=== PATIENT | female | born 1960 | race Caucasian/White ===

== ENCOUNTER 2017-01-09 05:45 | Inpatient (IN) | payer BC, OTHER ==
--- OUTSIDE RECORDS SUMMARY | 2017-01-09 05:49 | XMS REPORT | Continuity of Care Document ---
:1960 Author Organization [facility] ([facility]) Address [address] [place] [address] Phone [phone] Care Team Providers Name Role Phone Provider, No-Primary Care Primary Care Provider Unavailable Source Comments This disclosure is being made pursuant to the Care Everywhere program, applicable federal and state laws, and may not contain all informaitonavailable regarding this patient.[facility] ([facility]) Active Allergies and Adverse Reactions Not on File Current Medications Not on file Active Problems Not on file Social History Tobacco Use Types Packs/Day Years Used Date Never Assessed Plan of Care Health Maintenance Due Date Last Done Comments HCV Screening 1960 Hepatitis B Vaccine (1 of 3 - Primary Series) 1960 Tdap Vaccine 1972 Lipid Disorder Screening 1979 MMR Vaccine 1979 Td Vaccine 1979 Cervical Cancer Screening 1991 Mammogram 2001 Colonoscopy 2011 Influenza Vaccine: Seasonal (#1) 03/20/2016 Results from Last 3 Months Not on file
[2017-01-09] MEDS ORDERED: MORPHINE SULFATE 15 MG TABLET.SA PO PRN (06:00)
[2017-01-09] MEDS ORDERED: RINGERS SOLUTION,LACTATED 1,000 ML IV PRN (06:00)
[2017-01-09] MEDS ORDERED: TRANEXAMIC ACID 1,000 MG in NORMAL SALINE 100 ML IV PRN (06:00)
[2017-01-09] MEDS ORDERED: ROPIVACAINE HCL/PF 100 MG, KETOROLAC TROMETHAMINE 30 MG, EPINEPHrine 0.2 MG in NORMAL S... IJ PRN (06:00)
[2017-01-09] MEDS ORDERED: ceFAZolin SODIUM 1 GM VIAL IV PRN (06:00)
[2017-01-09] MEDS ORDERED: RINGERS SOLUTION,LACTATED 800 ML IV ONE (07:40)
[2017-01-09] MEDS ORDERED: RINGERS SOLUTION,LACTATED 1,000 ML IV ONE ×2 (08:10→09:10)
[2017-01-09] MEDS ORDERED: MAG HYDROX/ALUMINUM HYD/SIMETH 30 ML UDC PO PRN (10:42)
[2017-01-09] MEDS ORDERED: oxyCODONE HCL/ACETAMINOPHEN 1 TAB TABLET PO PRN (10:42)
[2017-01-09] MEDS ORDERED: MAGNESIUM HYDROXIDE 30 ML UDC PO PRN (10:42)
[2017-01-09] MEDS ORDERED: MORPHINE SULFATE 2 MG/ML DISP.SYRIN IV PRN (10:55)
--- NOTE | 2017-01-09 11:00 | OR ---
Operative Report - Dictated Report Narrative: Date: 01/09/2017 Preoperative diagnosis: Right Knee degenerative joint disease. Postoperative diagnosis: Right Knee degenerative joint disease. Procedure: Right Total knee arthroplasty. Surgeon: Isra Hirsch M.D. Division Plant Engineer: Kedar Chaney PA-C Anesthesia: Spinal with regional block and local periarticular joint injection. Complications: None Specimens: Bone for disposal. Estimated blood loss: Minimal. Tourniquet time: 83 Minutes at 300 millimeters of mercury. Retained implants: Depuy Attune size 5 standard lugged cemented posterior stabilized femoral component. Size 4 fixed-bearing cemented tibial platform. 5 by 10 millimeter posterior stabilized cross-linked tibial insert. 35 millimeter medialized patella button. Indications: Lars Is a 56-year-old female who previously underwent patellar realignment surgery and has gone on to develop significant arthritis of the right knee. This patient was followed in my clinic for period of time with significant complaints of right knee pain consistent with arthritic changes. They had failed conservative measures including but not limited to activity modification, passage of time, medications, and other conservative measures. Patient wished to proceed with surgical treatment. The risks, benefits, and alternatives were discussed in clinic. The risks of , blood clots, bleeding, infection, nerve/tendon blood vessel/ injury, malposition of components, intraoperative fracture, postoperative limited range of motion, persistent pain, failure of components, and need for additional procedures. Patient wished to proceed consent was obtained after answering all questions. Procedure: After marking the correct extremity on the floor, the patient was taken to the operating room. A timeout was performed. IV antibiotics consisting of 2 g of Ancef were administered prior to the procedure. A regional followed by spinal anesthetic was induced by anesthesia on the operative table with all bony prominences well-padded. Ordaz catheter was placed and a bump was placed under the operative side buttock. SCDs and KEDAR hose were utilized on the nonoperative leg. A well-padded tourniquet was applied to the operative thigh. The operative leg was then pre-scrubbed with alcohol prepped and draped in a standard sterile fashion. After exsanguinating the extremity with an Esmarch bandage, the tourniquet was inflated to 300 mmHg. After marking out the anterior knee for standard incision centered over the patella incorporating her previous incision, the skin was incised and dissected down to the joint retinaculum. The joint retinaculum was marked out as well as the horizontal axis of the patella, and a standard medial parapatellar arthrotomy was then made. The most proximal aspect of the quadriceps tendon and the patella tendon insertion were protected from release. A partial synovectomy was performed as well as a resection of the infrapatellar fat pad. The distal femoral fat pad proximal to the trochlea was also resected using cautery. The soft tissues were elevated off the medial aspect of the proximal tibia using a Boyle elevator ensuring that we did not transect the medial collateral ligament. Upon initial evaluation range of motion was approximately 10 degrees to 120 degrees of flexion. There were signs of advanced arthrosis in the medial and patellofemoral joint spaces. There were large marginal osteophytes which were removed with a rongeur. The knee was hyperflexed and the patella was tucked laterally. Protecting the surrounding soft tissues with Homans, an entry drill was placed down the femoral canal using Whitesides line for guidance into the entry point. The intramedullary femoral alignment kike was utilized in order to cut the distal femur in 5 of valgus resecting 11 millimeters of bone. Next the distal femur was sized to a size 5. A posterior referencing guide was utilized to place the distal femoral cutting block in 3 of external rotation. This was pinned into place. The rotation was confirmed both visually and based on anatomic landmarks. The 4 in 1 cutting jig of the appropriate size was utilized in order to make all bony cuts. Retractors were utilized in order to protect surrounding soft tissues. This cut did not result in any excessive notching. We then cut the box centered over the distal femur. This allowed for resection of the anterior and posterior cruciate ligaments. I then turned my attention to the preparation of the tibia. Using an extra medullary tibial alignment kike, 2 millimeters of bone was resected off the medial articular surface. This was made perpendicular to the mechanical axis of the joint with the alignment kike centered over the ankle mortise. The alignment kike was parallel to the mechanical axis, centered over the medial one third of the tibial tubercle, paralleling the anterior surface of the tibia. We then turned our attention to the remaining meniscus and soft tissues. These were removed while protecting the surrounding ligaments and soft tissues. The marginal osteophytes off the anterior, posterior, medial, lateral aspects of the femur and tibia were removed. The tibia was sized out to a size 4. Next the tibia was drilled and punched in an externally rotated position as confirmed with a drop kike. Next the trial femur and a series of tibial inserts were utilized in order to allow for full extension and maximal flexion. It was found that a 5 x 10 millimeter insert gave the best range of motion and stability at multiple flexion points as well as at full extension there was less than 2 mm of gapping both medially and laterally. There is minimal anterior translation with the knee at 90 of flexion and no signs of being able to dislocate the knee. The patella was then prepared. The initial thickness was 21 millimeters. This was reamed down to 14 millimeters parallel to the anterior surface of the patella. It was sized out to a size 35 mm medialized patella button. This was then drilled and trialed. Without any medial restraint the patella tracked appropriately and did not sublux or dislocate. At this point, it was felt these were the appropriate sized implants and all trials were removed. The bony surfaces were thoroughly irrigated with a pulsatile-suction saline irrigation device. A bone plug from the prior resected anterior chamfer cut was placed into the drill hole at the distal femur. The bony surfaces were then dried in preparation for placement of the implants. The cement was vacuum mixed per the woodworking machine setter's instructions. The cement was placed on the dry bony surfaces and posterior aspect of the implants. The implants were impacted into place, removing all extruded cement. At this point anesthesia administered tranexamic acid per protocol intravenously. The knee was placed in extension with axial loading with the trial insert while the cement cured. A dilute 0.35% betadyne-saline solution was used to irrigate the knee and allowed to sit in the knee while the cement cured. Once the cement cured, all remaining extruded cement was removed. The knee was placed through a range of motion with the trial insert to ensure appropriate range of motion and stability. Final range of motion was approximately 0 to 130 degrees. The knee was again thoroughly irrigated with pulsatile saline lavage. The final polyethylene insert was then impacted into place ensuring no retained soft tissues. The standard periarticular joint injection consisting of ropivacaine, Toradol, and epinephrine were injected into the periarticular joint tissues. The knee was then packed with lap sponges which were soaked with dilute betadyne solution and the tourniquet was let down. Pressure was held for approximately 2 minutes and then hemostasis was obtained using electrocautery to coagulate any bleeding vessels. The knee was then placed over a triangle and the arthrotomy was closed with interrupted # 1 Vicryl after thoroughly irrigating the joint. The deep and subcutaneous tissues were closed with interrupted 0 and 3-0 Vicryl respectively. Skin was closed with a running subcutaneous 3-0 Monocryl and Prineo dressing. 4 x 4's, ABD, Sof-Rol, and a full leg Kieran wrap were applied. All sponge, needle, blade, and instrument counts were correct prior to closing the wounds. Postoperative condition: The patient was awoken and transferred to the postanesthesia care unit in stable condition. Plan is to be admitted to the inpatient medical/surgical floor postoperatively for 24 hours of IV antibiotics , physical therapy, occupational therapy, and medical co-management. Patient will be weightbearing as tolerated with range of motion as tolerated. DVT prophylaxis will be with SCDs, KEDAR hose, and pharmacological anticoagulation. Anticipated hospital stay is approximately 2-4 days.
[2017-01-09] MEDS: DEXTROSE 5%-LACTATED RINGERS 1,000 ML IV PRN ×2 (11:44→21:06)
[2017-01-09] MEDS: ONDANSETRON HCL/PF 2 MG/ML VIAL IV PRN ×2 (12:06→20:29)
[2017-01-09] MEDS ORDERED: ceFAZolin SODIUM/DEXTROSE,ISO 2 GM/50 ML BAG IV SCH (12:42)
[2017-01-09] MEDS: ceFAZolin SODIUM 2 GM in DEXTROSE 5 % IN WATER 50 ML IV SCH ×6 (13:39→23:53)
[2017-01-09] MEDS: PROMETHAZINE HCL 5 MG in DEXTROSE 5 % IN WATER 50 ML IV PRN ×2 (15:37)
--- NOTE | 2017-01-09 16:10 | PN ---
Subjective - Date and Time Seen Date: 01/09/17 Time: 16:07 Subjective Narrative: No new complain She said she feels better since Effexor was started Objective - Review of Systems Generalized/Overall Review: Reports: No Symptoms Reported EENTM: Reports: No Symptoms Reported Respiratory: Reports: No Symptoms Reported Cardiac: Reports: No Symptoms Reported Abdominal: Reports: Nausea - improved after zofran Genitourinary Symptoms: Reports: No Symptoms Reported Neurological: Reports: No Symptoms Reported Endocrine: Reports: No Symptoms Reported - Vitals Vitals: Last Vital Signs Temp 36.5 C 01/09/17 12:18 Pulse 72 01/09/17 15:18 Resp 16 01/09/17 15:18 BP 139/74 01/09/17 15:18 Pulse Ox 95 01/09/17 15:18 - Exam Constitutional: Present: Alert, Oriented x3, Cooperative Respiratory: Present: lungs clear Cardiovascular/Chest: Present: regular rate, rhythm Abdomen: Present: soft, nontender Skin Exam: Present: normal color, warm/dry Appearance: Present: appropriate appearance Eye contact: Present: good eye contact Cauti Physician Documentation - Urinary Catheter Management Uretheral (Ordaz) Date of Insertion: 01/09/17 Time of Insertion: 08:10 Assessment/Plan - Problems/Diagnosis (1) ALEJANDRO (generalized anxiety disorder) Problem: Acute Narrative: Continue Effexor (2) Hyperlipidemia Problem: Acute Qualifiers: Qualified Code(s): E78.5 - Hyperlipidemia, unspecified Narrative: Continue Crestor
[2017-01-09] MEDS: CYANOCOBALAMIN 1,000 MCG TABLET PO SCH (17:01)
[2017-01-09] MEDS: VENLAFAXINE HCL 75 MG TABLET PO SCH (17:01)
[2017-01-09] MEDS: oxyCODONE HCL/ACETAMINOPHEN 1 TAB TABLET PO PRN (20:28)
[2017-01-09] MEDS: SENNOSIDES/DOCUSATE SODIUM 1 TAB TABLET PO SCH (20:29)
[2017-01-09] MEDS: PANTOPRAZOLE SODIUM 20 MG TABLET.DR PO SCH (20:29)
[2017-01-10] MEDS ORDERED: diphenhydrAMINE HCL 25 MG CAPSULE PO PRN (01:49)
[2017-01-10] MEDS: oxyCODONE HCL/ACETAMINOPHEN 1 TAB TABLET PO PRN ×2 (02:03→07:39)
[2017-01-10] MEDS: ONDANSETRON HCL/PF 2 MG/ML VIAL IV PRN ×3 (02:03→13:22)
[2017-01-10 05:24] LABS: Hematocrit 36.9 % (37.0-47.0); Mean Cell Volume 94.4 fl (78-100); Mean Corpuscular Hemoglobin 30.7 pg (27-31); Mean Corpuscular Hgb Conc 32.5 g/dl (32-36); Mean Platelet Volume 9.4 fl (6.0-9.5); Platelet Count 217 K/mm3 (150-450); Red Blood Count 3.91 M/mm3 (4.2-5.4); Red Cell Distribution Width 13.1 % (11.5-14.0); White Blood Count 8.4 K/mm3 (4.0-10.5)
[2017-01-10 05:35] LABS: Anion Gap 6.9 mmol/L (6.8-13.8); BUN/Creatinine Ratio 12.7 (9.0-21.6); Calcium * 8.3 mg/dL (7.9-10.9); Carbon Dioxide 32.7 mmol/L (24-32.6); Estimated Creat Clear 83.8; Potassium 3.6 mmol/L (3.4-4.6)
[2017-01-10] MEDS: PANTOPRAZOLE SODIUM 20 MG TABLET.DR PO SCH ×2 (07:39→20:07)
[2017-01-10] MEDS ORDERED: ZOLPIDEM TARTRATE 5 MG TABLET PO PRN (08:27)
--- NOTE | 2017-01-10 08:45 | PN ---
Subjective - Date and Time Seen Date: 01/10/17 Time: 08:43 Subjective Narrative: c/o of nausea Objective - Review of Systems Generalized/Overall Review: Reports: No Symptoms Reported EENTM: Reports: No Symptoms Reported Respiratory: Reports: No Symptoms Reported Cardiac: Reports: No Symptoms Reported Abdominal: Reports: Nausea Genitourinary Symptoms: Reports: No Symptoms Reported Neurological: Reports: No Symptoms Reported Skin: Reports: No Symptoms Reported - Vitals Vitals: Last Vital Signs Temp 36.8 C 01/10/17 07:00 Pulse 73 01/10/17 07:00 Resp 14 01/10/17 07:00 BP 120/52 01/10/17 07:00 Pulse Ox 93 01/10/17 07:00 - Abnormal Lab Findings Abnormal Lab Findings: Abnormal Lab Results 01/10/17 01/10/17 Range/Units 05:20 05:20 RBC 3.91 L (4.2-5.4) M/mm3 Hgb 12.0 L (12.5-16.0) gm/dL Hct 36.9 L (37.0-47.0) % Carbon Dioxide 32.7 H (24-32.6) mmol/L Random Glucose 122 H (70-110) mg/dL - Exam Constitutional: Present: Alert, Oriented x3, Cooperative Respiratory: Present: lungs clear Cardiovascular/Chest: Present: regular rate, rhythm Abdomen: Present: soft, nontender /Rectal: Present: Exam deferred Skin Exam: Present: normal color, warm/dry Appearance: Present: appropriate appearance Cauti Physician Documentation - Urinary Catheter Management Uretheral (Ordaz) Urethral Indwelling: Yes Reason for Continuing Indwelling Catheter: Surgical Procedure Date of Insertion: 01/09/17 Time of Insertion: 08:10 Assessment/Plan - Problems/Diagnosis (1) ALEJANDRO (generalized anxiety disorder) Problem: Chronic (2) Hyperlipidemia Problem: Chronic Qualifiers: Qualified Code(s): E78.5 - Hyperlipidemia, unspecified Narrative: agree with current treatment
--- NOTE | 2017-01-10 09:03 | PN ---
Subjective - Date and Time Seen Date: 01/10/17 Subjective Narrative: No events overnight. Continues to have nausea and is noting increased pain in the back of the knee. Objective - Vitals Vitals: Last Vital Signs Temp 36.8 C 01/10/17 07:00 Pulse 73 01/10/17 07:00 Resp 14 01/10/17 07:00 BP 120/52 01/10/17 07:00 Pulse Ox 93 01/10/17 07:00 - Abnormal Lab Findings Abnormal Lab Findings: Abnormal Lab Results 01/10/17 01/10/17 Range/Units 05:20 05:20 RBC 3.91 L (4.2-5.4) M/mm3 Hgb 12.0 L (12.5-16.0) gm/dL Hct 36.9 L (37.0-47.0) % Carbon Dioxide 32.7 H (24-32.6) mmol/L Random Glucose 122 H (70-110) mg/dL - Exam Exam Narrative: Gen: A&Ox4, NAD MSK: RLE--> dressings c/d/i, cold therapy cuff in place, 5/5 ankle DF/PF, able to flex and extend all toes, SILT, DP 2+ Cauti Physician Documentation - Urinary Catheter Management Uretheral (Thomas) Urethral Indwelling: Yes Date of Insertion: 01/09/17 Time of Insertion: 08:10 Assessment/Plan Plan Narrative: 56 yo F s/p R TKA, POD #1. - WBAT, ROM as tolerated - reg diet - oral pain meds, IV for breakthrough - zofran, phenergan for nausea - thomas out today - Hgb ok - PT/OT - DVT ppx: lovenox, SCDs, teds - dispo: continue inpatient care
[2017-01-10] MEDS: HYDROCHLOROTHIAZIDE 25 MG TABLET PO SCH (09:38)
[2017-01-10] MEDS: VENLAFAXINE HCL 75 MG TABLET PO SCH (09:38)
[2017-01-10] MEDS: CYANOCOBALAMIN 1,000 MCG TABLET PO SCH (09:38)
[2017-01-10] MEDS: ASCORBIC ACID 500 MG TABLET PO SCH (09:38)
[2017-01-10] MEDS: ENOXAPARIN SODIUM 40 MG/0.4 ML SYRG SC SCH (09:41)
[2017-01-10] MEDS: ACETAMINOPHEN 500 MG TABLET PO PRN ×2 (13:31→19:31)
[2017-01-10] MEDS: SENNOSIDES/DOCUSATE SODIUM 1 TAB TABLET PO SCH (20:07)
[2017-01-10] MEDS: PROMETHAZINE HCL 5 MG in DEXTROSE 5 % IN WATER 50 ML IV PRN ×2 (20:28)
[2017-01-11] MEDS: ACETAMINOPHEN 500 MG TABLET PO PRN (02:01)
[2017-01-11 05:40] LABS: Hematocrit 37.8 % (37.0-47.0); Hemoglobin 12.1 gm/dL (12.5-16.0); Mean Cell Volume 93.3 fl (78-100); Mean Corpuscular Hemoglobin 29.9 pg (27-31); Mean Platelet Volume 9.5 fl (6.0-9.5); Platelet Count 217 K/mm3 (150-450); Red Blood Count 4.05 M/mm3 (4.2-5.4); Red Cell Distribution Width 12.8 % (11.5-14.0); White Blood Count 7.4 K/mm3 (4.0-10.5)
[2017-01-11 06:01] LABS: Anion Gap 8.1 mmol/L (6.8-13.8); BUN/Creatinine Ratio 11.1 (9.0-21.6); Calcium * 8.8 mg/dL (7.9-10.9); Carbon Dioxide 32.9 mmol/L (24-32.6); Estimated Creat Clear 82.6
[2017-01-11] MEDS: PANTOPRAZOLE SODIUM 20 MG TABLET.DR PO SCH ×2 (06:44→21:08)
[2017-01-11] MEDS ORDERED: ONDANSETRON HCL/PF 2 MG/ML VIAL IV STA (08:37)
--- NOTE | 2017-01-11 08:45 | PN ---
Subjective - Date and Time Seen Date: 01/11/17 Time: 08:38 Subjective Narrative: Evaluation this morning. Patient complaining of decreased pain control, nausea. She states that physical therapy went fair yesterday she reports that she had an episode of emesis following her exercise. Patient denies numbness tingling to her lower extremity. Feels that the oxycodone is causing her to have GI upset. Objective - Review of Systems Generalized/Overall Review: Reports: No Symptoms Reported Respiratory: Reports: No Symptoms Reported Cardiac: Reports: No Symptoms Reported - Vitals Vitals: Last Vital Signs Temp 36.5 C 01/11/17 07:32 Pulse 71 01/11/17 07:32 Resp 18 01/11/17 07:32 BP 118/39 01/11/17 07:32 Pulse Ox 94 01/11/17 07:32 - Abnormal Lab Findings Abnormal Lab Findings: Abnormal Lab Results 01/11/17 01/11/17 Range/Units 05:30 05:30 RBC 4.05 L (4.2-5.4) M/mm3 Hgb 12.1 L (12.5-16.0) gm/dL Potassium 3.0 L (3.4-4.6) mmol/L Carbon Dioxide 32.9 H (24-32.6) mmol/L - Exam Exam Narrative: Awake and alert. Answers all questions appropriately. Exaination today of right lower extremity reveals dressing in place. Foot ankle range of motion. Good dorsalis pedis pulse. Normal light touch sensation, negative Homans. Dressing dry and intact. Cauti Physician Documentation - Urinary Catheter Management Uretheral (Ordaz) Urethral Indwelling: Yes Date of Insertion: 01/09/17 Time of Insertion: 08:10 Date of Removal: 01/10/17 Time of Removal: 09:45 Assessment/Plan Plan Narrative: Will change dressing. Will change pain meds orders. Continue PT.
--- NOTE | 2017-01-11 08:46 | PN ---
Subjective - Date and Time Seen Date: 01/11/17 Time: 08:42 Subjective Narrative: Is still nauseous and having pain; vomited once yesterday Objective - Review of Systems Generalized/Overall Review: Reports: No Symptoms Reported EENTM: Reports: No Symptoms Reported Respiratory: Reports: No Symptoms Reported Cardiac: Reports: No Symptoms Reported Abdominal: Reports: Nausea, Vomiting Genitourinary Symptoms: Reports: No Symptoms Reported Neurological: Reports: No Symptoms Reported Skin: Reports: No Symptoms Reported - Vitals Vitals: Last Vital Signs Temp 36.5 C 01/11/17 07:32 Pulse 71 01/11/17 07:32 Resp 18 01/11/17 07:32 BP 118/39 01/11/17 07:32 Pulse Ox 94 01/11/17 07:32 - Abnormal Lab Findings Abnormal Lab Findings: Abnormal Lab Results 01/11/17 01/11/17 Range/Units 05:30 05:30 RBC 4.05 L (4.2-5.4) M/mm3 Hgb 12.1 L (12.5-16.0) gm/dL Potassium 3.0 L (3.4-4.6) mmol/L Carbon Dioxide 32.9 H (24-32.6) mmol/L - Exam Constitutional: Present: Alert, Oriented x3, Cooperative Respiratory: Present: lungs clear, normal breath sounds Cardiovascular/Chest: Present: regular rate, rhythm Abdomen: Present: soft, nontender /Rectal: Present: Exam deferred Cauti Physician Documentation - Urinary Catheter Management Uretheral (Ordaz) Urethral Indwelling: Yes Date of Insertion: 01/09/17 Time of Insertion: 08:10 Date of Removal: 01/10/17 Time of Removal: 09:45 Assessment/Plan Plan Narrative: Would give 8 mg of Zofran for nausea Hypokalemia due to vomiting I will give potassium supplement for a few days - Problems/Diagnosis (1) ALEJANDRO (generalized anxiety disorder) Problem: Chronic (2) Hyperlipidemia Problem: Chronic Qualifiers: Qualified Code(s): E78.5 - Hyperlipidemia, unspecified
[2017-01-11] MEDS ORDERED: MORPHINE SULFATE 15 MG TABLET.SA PO PRN (08:49)
[2017-01-11] MEDS: VENLAFAXINE HCL 75 MG TABLET PO SCH (09:42)
[2017-01-11] MEDS: HYDROcodone/ACETAMINOPHEN 1 EACH TABLET PO PRN ×3 (09:42→22:27)
[2017-01-11] MEDS: CYANOCOBALAMIN 1,000 MCG TABLET PO SCH (09:42)
[2017-01-11] MEDS: POTASSIUM CHLORIDE 10 MEQ TABLET.SA PO SCH ×2 (09:42→16:26)
[2017-01-11] MEDS: HYDROCHLOROTHIAZIDE 25 MG TABLET PO SCH (09:42)
[2017-01-11] MEDS: ASCORBIC ACID 500 MG TABLET PO SCH (09:42)
[2017-01-11] MEDS: ENOXAPARIN SODIUM 40 MG/0.4 ML SYRG SC SCH (09:43)
[2017-01-11] MEDS: ONDANSETRON 4 MG TAB.RAPDIS PO PRN ×2 (16:12→22:26)
[2017-01-11] MEDS ORDERED: ROSUVASTATIN CALCIUM 10 MG TABLET PO SCH (21:00)
[2017-01-11] MEDS: SENNOSIDES/DOCUSATE SODIUM 1 TAB TABLET PO SCH (21:08)
[2017-01-12] MEDS: ONDANSETRON 4 MG TAB.RAPDIS PO PRN ×2 (05:24→11:48)
[2017-01-12] MEDS: HYDROcodone/ACETAMINOPHEN 1 EACH TABLET PO PRN ×2 (05:24→11:48)
[2017-01-12 06:05] LABS: Hematocrit 38.6 % (37.0-47.0); Hemoglobin 12.5 gm/dL (12.5-16.0); Mean Cell Volume 93.2 fl (78-100); Mean Corpuscular Hemoglobin 30.2 pg (27-31); Mean Corpuscular Hgb Conc 32.4 g/dl (32-36); Mean Platelet Volume 9.3 fl (6.0-9.5); Neutrophil # 4.5 K/mm3 (1.3-6.0); Neutrophil % 74.4 % (42-75.0); Platelet Count 237 K/mm3 (150-450); Red Blood Count 4.14 M/mm3 (4.2-5.4)
[2017-01-12 06:28] LABS: Albumin * 2.5 gm/dl (3.4-5.0); Anion Gap 9.9 mmol/L (6.8-13.8); BUN/Creatinine Ratio 10.3 (9.0-21.6); Bilirubin, Total 0.4 mg/dL (0.0-1.1); Ca. Corrected For Albumin 9.8 mg/dL (8.4-10.2); Calcium * 8.9 mg/dL (7.9-10.9); Carbon Dioxide 30.8 mmol/L (24-32.6); Potassium 3.7 mmol/L (3.4-4.6); Total Protein 6.5 gm/dL (6.2-8.2)
[2017-01-12] MEDS: PANTOPRAZOLE SODIUM 20 MG TABLET.DR PO SCH (06:43)
[2017-01-12 08:03] VITALS: BP 112/54
--- NOTE | 2017-01-12 08:38 | PN ---
Subjective - Date and Time Seen Date: 01/12/17 Time: 08:35 Subjective Narrative: Pain is better; no nausea no vomiting feeling better Objective - Review of Systems Generalized/Overall Review: Reports: No Symptoms Reported EENTM: Reports: No Symptoms Reported Respiratory: Reports: No Symptoms Reported Cardiac: Reports: No Symptoms Reported Abdominal: Reports: No Symptoms Reported Skin: Reports: No Symptoms Reported - Vitals Vitals: Last Vital Signs Temp 36.7 C 01/12/17 08:02 Pulse 83 01/12/17 08:02 Resp 18 01/12/17 08:02 BP 112/54 01/12/17 08:02 Pulse Ox 95 01/12/17 08:02 - Abnormal Lab Findings Abnormal Lab Findings: Abnormal Lab Results 01/12/17 01/12/17 Range/Units 05:55 05:55 RBC 4.14 L (4.2-5.4) M/mm3 Immature Gran % (Auto) 0.50 H (0.001-0.429) % Lymphocytes % 13.2 L (20-51) % Lymphocytes # 0.8 L (1.5-3.5) k/mm3 Albumin 2.5 L (3.4-5.0) gm/dl - Exam Constitutional: Present: Alert, Oriented x3, Cooperative Respiratory: Present: lungs clear Cardiovascular/Chest: Present: regular rate, rhythm Abdomen: Present: soft, nontender Cauti Physician Documentation - Urinary Catheter Management Uretheral (Ordaz) Urethral Indwelling: Yes Date of Insertion: 01/09/17 Time of Insertion: 08:10 Date of Removal: 01/10/17 Time of Removal: 09:45 Assessment/Plan - Problems/Diagnosis (1) ALEJANDRO (generalized anxiety disorder) Problem: Chronic (2) Hyperlipidemia Problem: Chronic Qualifiers: Qualified Code(s): E78.5 - Hyperlipidemia, unspecified (3) Hypokalemia due to loss of potassium Problem: Acute Narrative: Potassium was low because of vomiting this was corrected with potassium's replacement
[2017-01-12] MEDS: ASCORBIC ACID 500 MG TABLET PO SCH (08:57)
[2017-01-12] MEDS: POTASSIUM CHLORIDE 10 MEQ TABLET.SA PO SCH (08:57)
[2017-01-12] MEDS: HYDROCHLOROTHIAZIDE 25 MG TABLET PO SCH (08:57)
--- NOTE | 2017-01-12 08:57 | PN ---
Subjective - Date and Time Seen Date: 01/12/17 Subjective Narrative: No events overnight. Pain improving, nausea controlled with zofran. Making good progress with PT. Wants to go home today. Objective - Vitals Vitals: Last Vital Signs Temp 36.7 C 01/12/17 08:02 Pulse 83 01/12/17 08:02 Resp 18 01/12/17 08:02 BP 112/54 01/12/17 08:02 Pulse Ox 95 01/12/17 08:02 - Abnormal Lab Findings Abnormal Lab Findings: Abnormal Lab Results 01/12/17 01/12/17 Range/Units 05:55 05:55 RBC 4.14 L (4.2-5.4) M/mm3 Immature Gran % (Auto) 0.50 H (0.001-0.429) % Lymphocytes % 13.2 L (20-51) % Lymphocytes # 0.8 L (1.5-3.5) k/mm3 Albumin 2.5 L (3.4-5.0) gm/dl - Exam Exam Narrative: MSK: incision healing appropriately without erythema, Prineo dressing in place and intact, 2 pinpoint areas of drainage on her eros hose, 5/5 EHL/FHL/DF/PF, SILT, DP 2+ Cauti Physician Documentation - Urinary Catheter Management Uretheral (Ordaz) Urethral Indwelling: Yes Date of Insertion: 01/09/17 Time of Insertion: 08:10 Date of Removal: 01/10/17 Time of Removal: 09:45 Assessment/Plan Plan Narrative: 56 yo F s/p R TKA, POD #3. - WBAT, ROM as tolerated - reg diet - oral pain meds, IV for breakthrough - zofran for nausea - Hgb stable - PT/OT - DVT ppx: lovenox, SCDs, teds - recover incision with gauze and check for any drainage later today - dispo: d/c home
[2017-01-12] MEDS: VENLAFAXINE HCL 75 MG TABLET PO SCH (08:58)
[2017-01-12] MEDS: ENOXAPARIN SODIUM 40 MG/0.4 ML SYRG SC SCH (08:58)
[2017-01-12] MEDS: CYANOCOBALAMIN 1,000 MCG TABLET PO SCH (08:58)
--- NOTE | 2017-01-12 09:43 | DS ---
(1) S/P total knee arthroplasty Problem: Acute (2) Knee osteoarthritis Problem: Chronic Description of Stay: The patient was admitted and taken to the OR on 01/09/17 for R total knee arthroplasty. She tolerated the procedure well and there were no complications. She returned to the inpatient unit postoperatively where she remained stable. Vitals and labs were followed. She completed 24 hrs of post- op antibiotics. She resumed a normal diet and normal bladder and bowel function. Pain was controlled with oral pain meds. PT/OT was consulted and the patient made gains. She was deemed stable for discharge home on 01/12/17. Procedures Performed: see notes below List Procedures: R total knee arthroplasty - 01/09/17 Discharge Disposition: Home self care Disposition: Home self-care Condition: Good Discharge Activity: Activity as tolerated Discharge Diet: General/regular food Referrals: Delonte Atwood MD [Primary Care Provider] - Problem Oriented Discharge Instructions to Patient/Family: Total Knee Replacement, Care After, [id number] Additional Patient Instructions (free text): Orthopedic Discharge Instructions: 1. WBAT, ROM as tolerated. 2. Outpatient PT ordered, to begin right away. 3. Hydrocodone/Acet. for pain, zofran for nausea. 4. Inspect gauze dressing for any drainage later today. If there is no drainage , may shower with Prineo dressing uncovered. Inspect dressing daily for any drainage and to ensure dressing is not peeling up. If there is any drainage or dressing is peeling, keep covered with 4x4 gauze and tape and perform sponge baths only. 5. DVT prophylaxis: lovenox for 7 more days followed by 325 mg ASA daily for 6 weeks. Bilateral knee high eros hose for 6 weeks. 6. Ice machine at home. 7. Call the Orthopedic clinic at [phone] for any questions or concerns between now and your follow up appointment. Follow up Physical Therapy at [facility] in [place] on Tuesday 01/16 at 2:30pm. Follow up with Dr. Hirsch 01/24 at 9:30. Prescriptions (Any new or edited meds): Aspirin 325 mg PO DAILY #42 tablet Enoxaparin Sodium [Lovenox] 40 mg SC Q24H #7 disp.syrin HYDROcodone/ACETAMINOPHEN [Towson 5-325] 1 - 2 each PO Q6H PRN #120 tablet PRN Reason: Pain Ondansetron [Zofran Odt] 4 - 8 mg PO Q4H PRN #60 tab.rapdis PRN Reason: Nausea And Vomiting Sennosides/Docusate Sodium [Senokot-S] 2 tab PO HS #60 tablet Complete Home Medications List: Complete Home Medication List: Ascorbic Acid [Vitamin C] 1,000 mg PO DAILY 04/24/13 Cyanocobalamin [Vitamin B-12] 1,000 mcg PO DAILY 04/24/13 Hydrochlorothiazide [Hydrodiuril] 25 mg PO DAILY 04/24/13 Omeprazole [Prilosec] 20 mg PO BID 04/24/13 Rosuvastatin Calcium [Crestor] 5 mg PO Q3D 05/02/13 Venlafaxine HCl [Effexor] 75 mg PO DAILY 01/09/17 Aspirin 325 mg PO DAILY #42 tablet 01/12/17 Enoxaparin Sodium [Lovenox] 40 mg SC Q24H #7 disp.syrin 01/12/17 HYDROcodone/ACETAMINOPHEN [Towson 5-325] 1 - 2 each PO Q6H PRN #120 tablet Ondansetron [Zofran Odt] 4 - 8 mg PO Q4H PRN #60 tab.rapdis 01/12/17 Sennosides/Docusate Sodium [Senokot-S] 2 tab PO HS #60 tablet 01/12/17 Amb Orders for Discharge: PT Evaluation and Treatment Facility: [facility], Location: Rehabilitation Services
== END 2017-01-12 12:45 | disposition home or self-care (01) | DRG 470 ==
LOC: MS 05:45
PROVIDERS: ADMIT Orthopaedic Surgery; ATTEND Orthopaedic Surgery
PROC: 0SRC0J9 Replacement of Right Knee Joint with Synthetic Substitute, Cemented, Open Approach (ICD-10-PCS; principal; 2017-01-09 08:00)
DX: M17.0 Bilateral primary osteoarthritis of knee (principal); I10 Essential (primary) hypertension; E78.5 Hyperlipidemia, unspecified; K21.9 Gastro-esophageal reflux disease without esophagitis; F41.1 Generalized anxiety disorder